=== PATIENT | female | born 1970 | race Two or more races ===

== ENCOUNTER 2019-08-16 11:33 | Inpatient (IN) | payer OTHER ==
[2019-08-16 12:00] VITALS: BMI 32.8
[2019-08-16 12:54] LABS: BASO % 0.4 % (0-2.0); EOS % 3.4 % (0-4.5); HEMATOCRIT 39.2 % (32.4-45.2); HEMOGLOBIN 13.3 GM/dL (10.7-15.3); LYMPH % 44.2 % (8-40); MCH 29.8 pg (25.7-33.7); MCHC 33.8 g/dl (32.0-36.0); MEAN CELL VOLUME 88.2 fl (80-96); MEAN PLT VOLUME 9.3 fl (7.5-11.1); PLATELET COUNT 245 K/MM3 (134-434); RBC 4.45 M/mm3 (3.60-5.2); RDW 13.7 % (11.6-15.6); WHITE BLOOD COUNT 7.6 K/mm3 (4.0-10.0)
[2019-08-16 13:11] LABS: PROTHROMBIN TIME (PATIENT) 11.8 SEC (9.7-13.0)
[2019-08-16 13:13] LABS: ACTIVATED PTT 34.7 SECONDS (25.2-36.5)
[2019-08-16 13:27] LABS: ALBUMIN 3.8 g/dl (3.4-5.0); BILIRUBIN,TOTAL 0.3 mg/dL (0.2-1); BLOOD UREA NITROGEN 11.4 mg/dL (7-18); CALCIUM 9.7 mg/dL (8.5-10.1); CREATININE 0.7 mg/dL (0.55-1.3); POTASSIUM 4.3 mmol/L (3.5-5.1)
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
--- NOTE | 2019-08-16 14:26 | PDOC ---
Documentation entered by Sarina Paige SCRIBE, acting as scribe for Leonardo Snyder MD. Leonardo Snyder MD: This documentation has been prepared by the [facility] Adrianna, SCRIBE, under my direction and personally reviewed by me in its entirety. I confirm that the documentation accurately reflects all work, treatment, procedures, and medical decision making performed by me. Attending Attestation - Resident Resident Name: AravindPatricio - ED Attending Attestation I have performed the following: I have examined & evaluated the patient, The case was reviewed & discussed with the resident, I agree w/resident's findings & plan, Exceptions are as noted - HPI HPI: The patient is a 49 year old female, with a significant PMH of hypertension and hyperlipidemia, who presents to the ED for evaluation of visual changes for one hour. Patient notes that prior to arrival, she would look at her daughter and only be able to visualize half of her face. When looking at her grandson, his eye was upside down. After trying to close her eyes, she developed blurry vision and black spots, which lasted for ~15 minutes. Patient endorses a GONZALEZ at the time, which is now felt at the right temporal region. She reports being stressed lately. Denies numbness, tingling, weakness, changes in speech, facial droop. Allergies: NKA, NKDA Surgical History: Cholecystectomy Social History: Denies EtOH, tobacco, or illicit drug use - Physicial Exam PE: 08/16/19 14:26 Vitals: Triage Vital signs reviewed General Appearance: No acute distress, well nourished well developed, Head: Atraumatic, Eyes: Pupils equal reactive round, extraocular movement intact Cardiac: Regular rate and rhythym, no murmurs, no rubs, no gallops, Lungs: Clear to auscultation bilateral, good air movement bilaterally, Abdomen: Soft, non distended, normal bowel sounds, non tender to palpation Extremities: Full range of motion to all extremities, no cyanosis, clubbing, or edema Skin: Warm and dry, no rashes or lesions, no rash, no petechiae Neuro: AOX3; cranial Nerves 2-12 grossly intact, strength intact to all extremities, sensation intact to all extremities, gait normal Psych: Normal mood, normal affect - Medical Decision Making 08/16/19 14:26 NIHSS score 0 Patient asymptomatic at this time history examination consistent with TIA unclear etiology Will admit to medicine for further management. EXAM#: TYPE/EXAM: RESULT: [id number] CT/HEAD CT WITHOUT CONTRAST History: Headaches with visual field changes Impression: No significant interval change or CT evidence of acute intracranial pathology is identified. Correlate to to determine further evaluation and follow -up Reported By: Kunal Cohen MD 08/16/19 13:20 EXAM#: TYPE/EXAM: RESULT: [id number] RAD/CHEST PA LAT Clinical information. Admission. Impression No evidence of active pulmonary disease. Reported By: Joey Maynard MD 08/16/19 1423 Heart Score/ECG Review - ECG Impressions Comment:: EKG performed at 12:52 on 08/16/2019 demonstrates rate of 68 bpm, normal sinus rhythm, axis normal. No T wave inversions, no ST elevations.
[2019-08-16] MEDS ORDERED: IBUPROFEN 400 MG TABLET (FP) PO PRN (16:40)
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
[2019-08-16] MEDS ORDERED: ACETAMINOPHEN 325 MG TABLET (FP) PO PRN ×2 (21:11→21:49)
[2019-08-17 08:03] LABS: BASO % 0.3 % (0-2.0); EOS % 4.3 % (0-4.5); HEMATOCRIT 37.2 % (32.4-45.2); HEMOGLOBIN 12.5 GM/dL (10.7-15.3); LYMPH % 42.2 % (8-40); MCHC 33.6 g/dl (32.0-36.0); MEAN CELL VOLUME 89.2 fl (80-96); MEAN PLT VOLUME 9.4 fl (7.5-11.1); MONO % 7.7 % (3.8-10.2); NEUT % 45.5 % (42.8-82.8); PLATELET COUNT 234 K/MM3 (134-434); RBC 4.17 M/mm3 (3.60-5.2); RDW 13.6 % (11.6-15.6); WHITE BLOOD COUNT 6.5 K/mm3 (4.0-10.0)
[2019-08-17 09:23] LABS: MAGNESIUM 2.3 mg/dL (1.8-2.4)
[2019-08-17] MEDS: ENOXAPARIN NA (PORCINE) 40 MG/0.4 ML DISP.SYRIN SQ SCH (09:37)
--- NOTE | 2019-08-17 10:51 | EKG ---
Test Reason : Blood Pressure : / mmHG Vent. Rate : 087 BPM Atrial Rate : 087 BPM P-R Int : 132 ms QRS Dur : 082 ms QT Int : 372 ms P-R-T Axes : 045 035 034 degrees QTc Int : 447 ms NORMAL SINUS RHYTHM WHEN COMPARED WITH ECG OF 16-AUG-2019 12:52, NO SIGNIFICANT CHANGE WAS FOUND Confirmed by MIKA RUSSELL MD ([id number]) on 08/17/2019 10:51:10 AM Referred By: Confirmed By:MIKA RUSSELL MD
--- NOTE | 2019-08-17 10:54 | EKG ---
Test Reason : Blood Pressure : / mmHG Vent. Rate : 068 BPM Atrial Rate : 068 BPM P-R Int : 146 ms QRS Dur : 082 ms QT Int : 412 ms P-R-T Axes : 033 033 034 degrees QTc Int : 438 ms NORMAL SINUS RHYTHM NORMAL ECG WHEN COMPARED WITH ECG OF 11-JAN-2003 17:28, NO SIGNIFICANT CHANGE WAS FOUND Confirmed by MIKA RUSSELL MD ([id number]) on 08/17/2019 10:54:09 AM Referred By: Confirmed By:MIKA RUSSELL MD
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
[2019-08-17] MEDS ORDERED: MELATONIN 5 MG TABLETS PO PRN (21:49)
[2019-08-18 06:48] LABS: PH,URINE 8.5 (5.0-8.0); URINE APPEARANCE Clear; URINE BILIRUBIN Negative (NEGATIVE); URINE COLOR Yellow; URINE GLUCOSE (UA) Negative (NEGATIVE); URINE KETONE Negative (NEGATIVE); URINE LEUK ESTERASE Negative (NEGATIVE); URINE NITRITE Negative (NEGATIVE); URINE PROTEIN Negative (NEGATIVE); URINE UROBILINOGEN 0.2 mg/dL (0.2-1.0)
[2019-08-18 08:35] LABS: HEMOGLOBIN 12.7 GM/dL (10.7-15.3); MCH 29.8 pg (25.7-33.7); MCHC 33.4 g/dl (32.0-36.0); MEAN CELL VOLUME 89.3 fl (80-96); MEAN PLT VOLUME 9.4 fl (7.5-11.1); PLATELET COUNT 241 K/MM3 (134-434); RBC 4.25 M/mm3 (3.60-5.2); RDW 13.9 % (11.6-15.6); WHITE BLOOD COUNT 7.1 K/mm3 (4.0-10.0)
[2019-08-18 09:09] LABS: ALBUMIN 3.6 g/dl (3.4-5.0); BILIRUBIN,TOTAL 1.1 mg/dL (0.2-1); BLOOD UREA NITROGEN 11.5 mg/dL (7-18); CALCIUM 9.8 mg/dL (8.5-10.1); CREATININE 0.8 mg/dL (0.55-1.3); POTASSIUM 4.4 mmol/L (3.5-5.1); TOT PROT 7.6 g/dl (6.4-8.2)
[2019-08-18] MEDS: ENOXAPARIN NA (PORCINE) 40 MG/0.4 ML DISP.SYRIN SQ SCH (09:24)
--- NOTE | 2019-08-18 15:50 | PN ---
Physical Exam: SUBJECTIVE: Patient seen and examined. Pt afebrile and asymptomatic. No overnight events. Denies f/c/n/chest pain, sob OBJECTIVE: Vital Signs Period Temp Pulse Resp BP Sys/Linn Pulse Ox Last 24 Hr 97.7 F-98.6 F 70-84 18-20 113-136/54-80 GENERAL: AOx3, NAD EYES: PERRL, extraocular movements intact, sclera anicteric, conjunctiva clear. ENT: Oropharynx clear without exudates, moist mucous membranes. NECK: Trachea midline, full range of motion, supple. LUNGS: Breath sounds equal, clear to auscultation bilaterally, no wheezes, no crackles HEART: Regular rate and rhythm, S1, S2 without murmur, rub or gallop. ABDOMEN: Soft, nontender, nondistended, normoactive bowel sounds, no guarding EXTREMITIES: 2+ pulses, warm, well-perfused, no edema. NEUROLOGICAL: Cranial nerves II through XII grossly intact. Normal speech, gait not observed. SKIN: Warm, dry, normal turgor, no rashes or lesions noted Laboratory Results - last 24 hr 08/17/19 08/18/19 08/18/19 10:45 08:19 08:19 WBC 7.1 RBC 4.25 Hgb 12.7 Hct 38.0 MCV 89.3 MCH 29.8 MCHC 33.4 RDW 13.9 Plt Count 241 MPV 9.4 Sodium 140 Potassium 4.4 Chloride 106 Carbon Dioxide 29 Anion Gap 4 L BUN 11.5 Creatinine 0.8 Est GFR (CKD-EPI)AfAm 98.93 Est GFR (CKD-EPI)NonAf 85.36 Random Glucose 119 H Calcium 9.8 Total Bilirubin 1.1 H AST 14 L ALT 20 Alkaline Phosphatase 131 H Total Protein 7.6 Albumin 3.6 Urine Color Yellow Urine Appearance Clear Urine pH 8.5 H D Ur Specific [place] 1.025 Urine Protein Negative Urine Glucose (UA) Negative Urine Ketones Negative Urine Blood Negative Urine Nitrite Negative Urine Bilirubin Negative Urine Urobilinogen 0.2 Ur Leukocyte Esterase Negative Active Medications Generic Name Dose Route Start Last Admin Trade Name Freq PRN Reason Stop Dose Admin Acetaminophen 650 mg 08/16/19 21:49 Tylenol - PO Q6H PRN FEVER Enoxaparin Sodium 40 mg 08/17/19 10:00 08/18/19 09:24 Lovenox - SQ 40 mg DAILY EWA Administration Ibuprofen 400 mg 08/16/19 16:40 08/16/19 21:32 Motrin - PO 400 mg Q8H PRN Administration PAIN LEVEL 4 - 6 Melatonin 5 mg 08/17/19 21:49 08/17/19 22:09 Melatonin PO 5 mg HS PRN Administration INSOMNIA ASSESSMENT/PLAN: 49 y/o Panamanian-speaking F PMH of HTN and HLD presents c/o of visual changes of 20 min duration that have resolved is admitted for TIA work up #R/o TIA vs. Complex migraines Head CT-neg NIHSS: 0 Carotid duplex- neg ECHO pending Consult to Dr. Walker- pending recom f/u TSH, B12, and RPR #HTN Pt. already on prophylactic treatment for migraines as she takes Propanolol 60mg for HTN will hold Robaxin #HLD not on statin #FEN no IVF, encourage PO intake monitor electrolytes and replete as needed Sodium controlled diet #DVT Ppx. Lovenox 40mg Dispo: f/u ECHO, f/u Neuro recom Visit type - Emergency Visit Emergency Visit: Yes ED Registration Date: 08/16/19 Care time: The patient presented to the Emergency Department on the above date and was hospitalized for further evaluation of their emergent condition. - New Patient This patient is new to me today: Yes Date on this admission: 08/18/19 - Critical Care Critical Care patient: No - Discharge Referral Referred to [facility] No ATTENDING PHYSICIAN STATEMENT I saw and evaluated the patient. I reviewed the resident's note and discussed the case with the resident. I agree with the resident's findings and plan as documented. SUBJECTIVE: OBJECTIVE: ASSESSMENT AND PLAN:
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
[2019-08-19 07:12] LABS: HEMATOCRIT 36.1 % (32.4-45.2); HEMOGLOBIN 12.2 GM/dL (10.7-15.3); MCHC 33.7 g/dl (32.0-36.0); MEAN PLT VOLUME 9.7 fl (7.5-11.1); RBC 4.06 M/mm3 (3.60-5.2); RDW 13.5 % (11.6-15.6); WHITE BLOOD COUNT 8.2 K/mm3 (4.0-10.0)
[2019-08-19 08:02] LABS: ALBUMIN 3.2 g/dl (3.4-5.0); BILIRUBIN,TOTAL 0.1 mg/dL (0.2-1); BLOOD UREA NITROGEN 11.8 mg/dL (7-18); CALCIUM 8.5 mg/dL (8.5-10.1); CREATININE 0.7 mg/dL (0.55-1.3); POTASSIUM 4.6 mmol/L (3.5-5.1); TOT PROT 6.8 g/dl (6.4-8.2)
[2019-08-19] MEDS ORDERED: ASPIRIN 81 MG CHEWABLE TABLETS PO SCH (10:00)
[2019-08-19] MEDS: ENOXAPARIN NA (PORCINE) 40 MG/0.4 ML DISP.SYRIN SQ SCH (10:08)
[2019-08-19 10:53] LABS: PLATELET COUNT 186 K/MM3 (134-434)
--- NOTE | 2019-08-19 11:24 | CON.NEURO ---
Consult - Past Medical History ...: No - Alcohol/Substance Use Hx Alcohol Use: No - Smoking History Smoking history: Never smoked Aproximately how many cigarettes per day: 0 Home Medications - Allergies Allergies/Adverse Reactions: Allergies Allergy/AdvReac Type Severity Reaction Status Date / Time shellfish derived Allergy Verified 08/16/19 15:29 - Home Medications Home Medications: Ambulatory Orders Methocarbamol [Robaxin-750] 1,500 mg PO TID PRN 08/16/19 Propranolol HCl [Propranolol HCl ER] 60 mg PO DAILY 08/16/19 Physical Exam-Neuro Vital Signs: Vital Signs Temperature 98.5 F 08/19/19 08:24 Pulse Rate 70 08/19/19 08:24 Respiratory Rate 20 08/19/19 08:24 Blood Pressure 114/72 08/19/19 08:24 O2 Sat by Pulse Oximetry (%) 98 08/16/19 17:31 Labs: CBC, BMP 08/19/19 06:12 08/19/19 06:12 INR, PTT INR 1.00 (0.83-1.09) 08/16/19 12:30 Assessment/Plan cc Blurrng of vision HPI 49 year old female history of htn, hld. She came to hospital for visual changes and blurring of vision. Patient also have dull headhace . She has history of migraine and was started in inderal . Patient has normal ct head and carotid ultrasound is normal. Her syptoms almsot resolved. Patient takes aspirin and low dose crestor as well. Her syptoms are resolved now. PAST MEDICAL HISTORY: As above PAST SURGICAL HISTORY: CCY, , TAHBSO(pain from fibroids) Social History: Smoking: Denies Alcohol: Deneis Drugs: Denies Allergies shellfish derived Allergy (Verified 08/16/19 15:29) HOME MEDICATIONS: Home Medications Medication Instructions Recorded Methocarbamol [Robaxin-750] 1,500 mg PO TID PRN 08/16/19 Propranolol HCl [Propranolol HCl 60 mg PO DAILY 08/16/19 ER] ROS,FH,SH reviewed in chart NEUROLOGICAL EXAMINATION Alert oriented x 3, speech is normal, neck is supple vss eomi, pupils reactive no face asymmetry motor 5/5 all extremity sensation is normal ct head is normal and carotid ultrasound is normal Assessment/Plan 49 year old female history of mild headhace with visual symptoms given her history of migraine and abcd score being 2 , it is likely this invidence was migraine , given her age and risk factor tia is another possibility Plan: Neurologically patient is stable, and can be discharged - if she stays in hospital, a routine mri of brain can be obtained - continue inderal - life style modifcations and stroke education - continue inderal MRI OF BRAIN Thanking you so much Reji Do MD
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
--- NOTE | 2019-08-19 13:46 | ECHO ---
Name: SUZETTE SINGH Exam:Adult Echocardiogram Study Date: 08/19/2019 08:31 AM Age: 49 yrs Reason For Study: TIA Height: 60 in Weight: 168 lb BSA: 1.7 m2 MMode/2D Measurements & Calculations IVSd: 1.0 cm Ao root diam: 2.5 cm LVIDd: 3.9 cm LA dimension: 2.5 cm LVIDs: 2.6 cm LVPWd: 1.3 cm LVPWs: 1.4 cm EDV(Teich): 66.9 ml ESV(Teich): 25.6 ml LVOT diam: 2.0 cm LAV (MOD-bp): 38.0 ml RV S Jamal: 12.1 cm/sec Doppler Measurements & Calculations Ao V2 max: 151.5 cm/sec LV V1 max P.8 mmHg Ao max P.2 mmHg LV V1 max: 84.4 cm/sec JEFF(V,D): 1.7 cm2 TR max jamal: 228.9 cm/sec PA V2 max: 120.3 cm/sec TR max P.3 mmHg PA max P.8 mmHg Med Peak E' Jamal: 6.1 cm/sec Lat Peak E' Jamal: 7.7 cm/sec Left Ventricle The left ventricular size, thickness and function are normal. Right Ventricle The right ventricle is normal size. The right ventricular systolic function is normal. Atria Normal left and right atrial size and function. Mitral Valve The mitral valve is grossly normal. Tricuspid Valve The tricuspid valve is not well visualized, but is grossly normal. There is Trace to mild tricuspid regurgitation. Aortic Valve The aortic valve is normal in structure and function. Pulmonic Valve The pulmonic valve is not well visualized. Great Vessels The aortic root is normal size. Pericardium/Pleura There is no pericardial effusion. Interpretation Summary This was essentially a normal study. GLORIA\dsedab 08/19/2019 12:27 PM
[2019-08-19 15:25] VITALS: BP 125/74; PULSE 84; TEMP 98.7
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
== END 2019-08-19 16:58 | disposition home or self-care (01) | DRG 54 ==
LOC: JER 11:33 → JERBED 14:22 → J4W 18:32
PROVIDERS: ADMIT Internal Medicine; ATTEND Internal Medicine
DX: G43.809 Other migraine, not intractable, without status migrainosus (principal); I10 Essential (primary) hypertension; E78.5 Hyperlipidemia, unspecified; G45.9 Transient cerebral ischemic attack, unspecified; H53.123 Transient visual loss, bilateral; E66.9 Obesity, unspecified; Z68.32 Body mass index [BMI] 32.0-32.9, adult
CPT/HCPCS: 36415; 70450-TC; 70551-TC; 71046-TC-FY; 80053; 80061; 81003; 82550; 82607; 83036; 83721; 83735; 84100; 84443; 84484; 85025; 85027; 85610; 85730; 86593; 87040; 87077; 87086; 93005; 93010; 93306-TC; 93880-TC; 97116-GP; 97161-GP; 99285-25

== ENCOUNTER 2023-02-15 09:09 | Day surgery (SDC) | payer OTHER ==
[2023-02-07 09:02] VITALS: BMI 31.7
[2023-02-15 15:41] VITALS: TEMP 97
[2023-02-15 15:45] VITALS: BP 103/54; PULSE 64; RESP 16
== END 2023-02-15 13:15 | disposition home or self-care (01) ==
LOC: FASU-ENDO 09:09
PROVIDERS: ATTEND Internal Medicine Gastroenterology
PROC: 0DJD8ZZ Inspection of Lower Intestinal Tract, Via Natural or Artificial Opening Endoscopic (ICD-10-PCS; principal; 2023-02-15 12:06)
DX: Z12.11 Encounter for screening for malignant neoplasm of colon (principal); K64.1 Second degree hemorrhoids; K64.8 Other hemorrhoids